=== PATIENT | female | born 1985 | race African-American/Black ===

== ENCOUNTER 2019-05-28 12:35 | Emergency (ER) | payer SELFPAY ==
[~2019-05-28] VITALS: Ht 175.3 cm; Wt 132.0 kg
[2019-05-28] MEDS: SODIUM CHLORIDE 0.9% 1,000 ML IV ONE (14:19)
[2019-05-28] MEDS: ONDANSETRON HCL 4MG/2ML INJ IV STA (14:19)
[2019-05-28 14:22] LABS: CHLORIDE 106 mEq/L (98-107)
[2019-05-28 14:26] LABS: ETHANOL BLOOD < 10 mg/dL
[2019-05-28 14:27] LABS: PROTHROMBIN TIME 10.2 sec (9.6-11.0)
[2019-05-28 14:30] LABS: BASOPHILS % 0.4 % (0.0-2.0); EOSINOPHILS % 0.9 % (0.0-5.0); HEMATOCRIT. 40.8 % (36.0-48.0); HEMOGLOBIN. 13.7 g/dL (12.0-16.0); MEAN CORPUSCULAR VOLUME 92.1 fL (81.0-99.0); MEAN PLATELET VOLUME 9.4 fl (7.4-10.4); MONOCYTES % 12.2 % (2.0-8.0); NEUTROPHILS % 53.5 % (40.0-76.0); PLATELET 278 x1000/uL (130-400); RED BLOOD CELL COUNT 4.43 mill/uL (4.2-5.4); RED CELL DISTRIBUTION WIDTH 14.3 % (11.6-14.6)
[2019-05-28 15:13] LABS: CLARITY URINE CLEAR (CLEAR); COLOR URINE DARK YELLOW (YELLOW); KETONES URINE NEGATIVE (NEGATIVE); LEUKOCYTE ESTERASE URINE 3+ (NEGATIVE); NITRITE URINE NEGATIVE (NEGATIVE); OCCULT BLOOD URINE NEGATIVE (NEGATIVE); PROTEIN URINE NEGATIVE (NEGATIVE); SPECIFIC GRAVITY URINE 1.008 (1.005-1.030); UROBILINOGEN URINE 0.2 E.U./dL (0.2-1.0)
[2019-05-28 15:31] LABS: *AMPHETAMINES SCREEN URINE NEGATIVE (NEGATIVE); *BARBITURATES SCREEN URINE NEGATIVE (NEGATIVE)
[2019-05-28 15:32] LABS: *BENZODIAZEPINES SCREEN URINE NEGATIVE (NEGATIVE); *COCAINE SCREEN URINE NEGATIVE (NEGATIVE); METHADONE URINE SCREEN NEGATIVE (NEGATIVE); OPIATES URINE SCREEN NEGATIVE (NEGATIVE); PHENCYCLIDINE URINE SCREEN NEGATIVE (NEGATIVE)
[2019-05-28 15:38] LABS: CANNABINOID URINE SCREEN PRESUMTIVE POSITIVE (NEGATIVE)
[2019-05-28] MEDS: CEFTRIAXONE 1 G PREMIX 50 ML IV ONE (18:28)
[2019-05-28] MEDS: KETOROLAC 30MG/ML VIAL IV ONE (22:46)
[2019-05-29 23:00] VITALS: BP 107/61
== END 2019-05-29 23:20 ==
LOC: ER 12:35
DX: T43.3X2A Poisoning by phenothiazine antipsychotics and neuroleptics, intentional self-harm, initial encounter (principal); T39.1X2A Poisoning by 4-Aminophenol derivatives, intentional self-harm, initial encounter; T41.3X2A Poisoning by local anesthetics, intentional self-harm, initial encounter; R45.851 Suicidal ideations; F32.9 Major depressive disorder, single episode, unspecified; R05 Cough; R50.9 Fever, unspecified; R10.84 Generalized abdominal pain; Y92.89 Other specified places as the place of occurrence of the external cause; Z88.0 Allergy status to penicillin
CPT/HCPCS: 36415; 80053; 80076; 80305; 80307; 80320; 80329; 81003; 82140; 83690; 84484; 85025; 85610; 87077; 87086; 87186; 93005; 96365; 96375; 99285; J0696; J1885; J2405; J7030; G0480